=== PATIENT | male | born 1950 | race Caucasian/White ===

== ENCOUNTER 2023-12-31 06:00 | Day surgery (SDC) | payer OTHER, SELFPAY | END 2023-12-31 10:17 | disposition home or self-care (01) | LOC: SDS 06:00 | PROVIDERS: ATTENDING PHYSICIAN Specialist | DX: N43.40 Spermatocele of epididymis, unspecified (principal) | CPT/HCPCS: 54840; 88304 ==

== ENCOUNTER → 2024-02-25 10:54 | Outpatient (REF) | payer OTHER, SELFPAY | LOC: HWRAD 10:54 | PROVIDERS: ATTENDING PHYSICIAN Specialist; FAMILY PHYSICIAN Family Medicine; REFERRING PHYSICIAN Internal Medicine Endocrinology, Diabetes & Metabolism | DX: E04.2 Nontoxic multinodular goiter (principal); Z90.5 Acquired absence of kidney | CPT/HCPCS: 76536; 76775 ==

== ENCOUNTER → 2024-03-15 11:24 | Outpatient (REF) | payer OTHER, SELFPAY | LOC: HWRAD 11:24 | PROVIDERS: ATTENDING PHYSICIAN Family Medicine | DX: Z87.891 Personal history of nicotine dependence (principal) | CPT/HCPCS: 71271 ==